=== PATIENT | male | born 1960 | race Asian ===

== ENCOUNTER 2025-01-11 20:42 | Emergency (ER) | payer MEDICAID ==
[~2025-01-11] VITALS: Ht 182.9 cm; Wt 100.0 kg
[2025-01-11 20:45] VITALS: O2SAT 98
[2025-01-11 23:51] LABS: CREATININE 1.2 mg/dL (0.6-1.3); UREA NITROGEN BLOOD 11 mg/dL (9-23)
[2025-01-11] MEDS: ACETAMINOPHEN 1000MG/100ML 100 ML IV ONE (23:58)
[2025-01-12] MEDS ORDERED: IBUP-1455 MT (00:54)
[2025-01-12 01:51] VITALS: BP 138/88; PULSE 59; RESP 13; TEMP 37; O2SAT 97
== END 2025-01-12 02:10 | disposition home or self-care (01) ==
LOC: ER 20:42
DX: S06.0XAA Concussion with loss of consciousness status unknown, initial encounter (principal); F19.90 Other psychoactive substance use, unspecified, uncomplicated; Y04.0XXA Assault by unarmed brawl or fight, initial encounter; Y93.89 Activity, other specified; Y92.89 Other specified places as the place of occurrence of the external cause; Y99.8 Other external cause status
CPT/HCPCS: 36415; 80048; 85025; 96365; 99285; J0131